=== PATIENT | male | born 1960 | race African-American/Black ===

== ENCOUNTER → 2021-11-05 | Outpatient (CLI) | payer OTHER ==
--- NOTE | 2021-11-05 12:23 | RAD ---
EXAM: Renal sonogram. HISTORY: Flank pain after fall. TECHNIQUE: Sonographic imaging of the kidneys and bladder was performed. COMPARISON: None. FINDINGS: The right kidney measures 11.4 cm [id number] and is normal in position. There is no right hydronephrosis or suspicious right renal lesion. The left kidney is located within the left lower qu adrant and measures 8.8 cm [id number]. There is no left hydronephrosis or suspicious left renal les ion. The urinary bladder is unremarkable. IMPRESSION: 1. Left pelvic kidney. The left kidney is slightly decreased in size, possibly due to measurement elvis hnique or mild atrophy. 2. No acute sonographic finding. Electronically signed by: Radha Lima MD (11/05/2021 8:46 AM) [id number]
== END ==
LOC: US 06:41
PROVIDERS: ATTEND Internal Medicine
DX: R10.9 Unspecified abdominal pain (principal); R07.81 Pleurodynia; W10.8XXA Fall (on) (from) other stairs and steps, initial encounter
CPT/HCPCS: 76770